=== PATIENT | male | born 1980 | race Two or more races ===

== ENCOUNTER → 2020-09-28 | Outpatient (CLI) | payer BC ==
--- NOTE | 2020-09-28 16:44 | KCIC ---
CT of the abdomen and pelvis without contrast. 09/28/2020 11:00 AM Indication: Reason: LLQ pain, groin pain, microscopic hematuria. / Spl. Instructions: / History: Vasectomy 2014. Comparison Study: None. Technique: Multidetector CT imaging of the abdomen pelvis is obtained without administration of contrast. Findings: The visualized bilateral lung bases are clear. The liver, spleen, bilateral adrenal glands, gallbladder, and pancreas have a normal noncontrast enhanced appearance. There is a 1.4 cm rounded mass arising from the inferior pole the left kidney. The attenuation characteristics are greater than would be expected for simple cyst. A solid neoplasm is not excluded. Recommend multiphase CT imaging for further characterization. The kidneys are otherwise unremarkable. There is no evidence of nephrolithiasis or obstructive uropathy. The ureters are normal in course and caliber The bladder is decompressed limiting evaluation. There is no significant free fluid or free air in the abdomen or pelvis. There is no evidence of bowel obstruction or significant inflamatory change. The appendix is well visualized and grossly normal. There is no acute osseous abnormality identified. Impression: 1. 1.4 cm rounded mass arising from the inferior left kidney with nonspecific attenuation characteristics. Findings could represent a proteinaceous or hemorrhagic cyst. A solid neoplasm can't be excluded. Multiphase CT imaging recommended. 2. No other acute intra-abdominal abnormality is identified. CT DOSING PQRS STATEMENT: One or more of the following individualized dose reduction techniques were utilized for this examination: 1. Automated exposure control 2. Adjustment of the mA and/or kV according to patient size 3. Use of iterative reconstruction technique Electronically signed by: Romel Stone MD (09/28/2020 12:44 PM) [id number]
== END ==
LOC: KCIC CT 11:07
PROVIDERS: ATTEND Family Medicine
DX: N28.89 Other specified disorders of kidney and ureter (principal); R10.32 Left lower quadrant pain
CPT/HCPCS: 74176

== ENCOUNTER → 2021-06-04 | Outpatient (CLI) | payer BC ==
[~2021-06-04] MED LIST: CONTRAST GIVEN. MC PRN; IOHEXOL 300 MG/ML 100ML VIAL. IV ONE
--- NOTE | 2021-06-04 10:37 | KCIC ---
Exam Date: 06/04/2021 9:[address] ABDOMEN WITHOUT AND WITH IV CONTRAST Indication: Reason: Left renal mass seen on previous CT A/P, no complaints. / Spl. Instructions: 100m L Omni 300 / History: . TECHNIQUE: CT examination of the abdomen was performed low 4 and following the administration of non ionic intravenous contrast. One or more of the following dose reduction techniques were utilized: *Automated exposure control (AEC) *Adjustment of mA and/or kV according to patient size *Use of iterative reconstruction technique *CT scan done according to ALARA, or ALARA/IMAGE GENTLY COMPARISON: September 28, 2020 FINDINGS: The visualized lung bases are clear. Again seen is a 1.4 cm exophytic lesion arising from the lower pole of the left kidney this measures between 34-38 Hounsfield units on all phases of imaging indicating lack of contrast enhancement. Thi s is consistent with a hyperdense cyst. The liver, gallbladder, spleen, pancreas, adrenal glands and right kidney are normal. No significant atherosclerotic calcifications are seen. No upper abdominal lymphadenopathy or ascites is seen. Limited visualized loops of bowel in the upper abdomen are within normal limits. Osseous structures are intact. IMPRESSION: No significant contrast enhancement seen in small exophytic lesion arising from the lower pole of the left kidney consistent with a hyperdense cyst. No other suspicious renal lesions are seen. Electronically signed by: Jay Carreno MD (06/04/2021 10:35 AM) [id number]
== END ==
LOC: KCIC CT 09:18
PROVIDERS: ATTEND Family Medicine
DX: N28.89 Other specified disorders of kidney and ureter (principal)
CPT/HCPCS: 74170; Q9967